=== PATIENT | female | born 1945 | race Caucasian/White ===

== ENCOUNTER 2017-07-01 12:06 | Emergency (ER) | payer MEDICARE ==
[2017-07-01 12:17] VITALS: BP 138/63
[2017-07-01] MEDS ORDERED: KETOROLAC TROMETHAMINE 60 MG/2 ML VIAL IM ONE ×2 (13:22→13:25)
--- NOTE | 2017-07-01 13:34 | ERNOTE ---
ENT HPI Date of Service: 07/01/17 Presenting Symptoms: other Time Seen by Provider: 07/01/17 13:13 Source: patient, family Exam Limitations: no limitations - Immun/Allergies/Home Medications Immunizations: IMMUNIZATION HX Immunizations Up to Date Yes History of Influenza Vaccine No Hx Pneumococcal Vaccination No Allergies/Adverse Reactions: Allergies Allergy/AdvReac Type Severity Reaction Status Date / Time Iodinated Contrast- Oral and Allergy Severe Verified 04/15/16 08:37 IV Dye [IV Dye, Iodine Containing Contrast ] sulfamethoxazole Allergy Verified 04/15/16 08:37 [From Bactrim] trimethoprim [From Bactrim] Allergy Verified 04/15/16 08:37 ceftriaxone sodium AdvReac Severe Pain Verified 04/15/16 08:37 [From Rocephin] ciprofloxacin [From Cipro] AdvReac Severe Muscle Pain Verified 04/15/16 08:37 ciprofloxacin HCl AdvReac Severe Muscle Pain Verified 04/15/16 08:37 [From Cipro] Home Medications: HOME MEDICATIONS Amox Tr/Potassium Clavulanate [Augmentin 875-125 Tablet] 875 mg PO Q12H #20 tab 07/01/17 [Last Taken Unknown] - History of Present Illness Narrative: Complains of left ear pain back through the mastoid and down into the neck. Began several days ago and has been worsening to the point she cannot sleep or touch the affected area. Denies any trauma, fever, or other symptoms. Date (Duration): 07/01/17 Severity: Present: moderate ENT Location: Present: ear (L) Prearrival Treatment: Present: no prearrival treatment Modifying Factors - Improves: Reports: rest Modifying Factors - Worsens: Reports: activity Associated Symptoms - ENT: Reports: denies symptoms Review of Systems - Narrative Narrative: See HPI. States she recently had left facial cellulitis. States she has taken pcn before with no reaction. - Review of Systems Constitutional: Present: other - Denies any fever, chills, etc. EYE: Present: no symptoms reported ENT: Present: other - Left ear pain down through mastoid into neck as described. Denies any drainage. Respiratory: Present: cough - Dry nonproductive Cardiology: Present: no symptoms reported Gastrointestinal/Abdominal: Present: no symptoms reported Musculoskeletal: Present: no symptoms reported Skin: Present: no symptoms reported Neurological: Present: no symptoms reported Hematologic/Lymphatic: Present: no symptoms reported Psych: Present: no symptoms reported - Patient's Past Medical History Patient History - Medical: Kidney stone, UTI'S Patient History - Cardiac/Respiratory: No pertinent hx Patient History - Cancer: Skin Patient History - Surgical Procedures: Other Patient History - Other: None - Family History Mother Family History - Medical: History Unknown Family History - Cardiac/Respiratory: History Unknown - Social History Living Situations: home Abuse History: No History of abuse Psych History: No pertinent hx Smoking Status: Former smoker Have you smoked in the past 12 months: No Do you dip or chew tobacco: No Alcohol Use: none Drug Use: none - Immunizations Immunizations Up to Date: Yes Hx Pneumococcal Vaccination: No History of Influenza Vaccine: No Physical Exam - Physical Exam Narrative: No signs of significant illness or stress. Have not heard patient cough while in ER. General Appearance: Present: wd/wn, alert, no apparent distress Head Exam: Present: normal inspection, no tenderness w palpation Eye Exam: Normal inspection: bilateral, PERRL: bilateral, EOMI: bilateral Ears, Nose, Throat: Present: abnormal TM (L), other - Left TM retracted with residual blood present along with erythema. No perforation. Mastoids clear bilateral. Left posterior cervical lymphadenopathy with significant tenderness. No erythema or warmth of the noted area. Neck: Present: supple, full range of motion Respiratory: Present: no respiratory distress, normal breath sounds, no accessory muscle use, lungs clear Cardiovascular/Chest: Present: regular rate, rhythm, no murmur Back Exam: Present: other - No cervical spinal tenderness. No abnormal bony structure. Neurological Exam: Present: alert, oriented, normal mood/affect, no motor/ sensory deficits Skin Exam: Present: normal color, warm/dry Lymphatic Exam: Present: other - Left posterior cervical lymphadenopathy mild. ED Progress - Vital Signs Patient's Vital Signs:: I have reviewed the patient's vital signs. Vital Signs: Vital Signs 07/01/17 12:13 Temperature 37.3 C Pulse Rate 79 Respiratory 14 Rate Blood Pressure 138/63 O2 Sat by Pulse 97 Oximetry - Progress/Reassessment Chief Complaint: Earache Progress:: Improved Progress Note-Subjective: 07/01/17 13:36 States pain is beginning to improve. Much more comfortable. - Transfer of Care Expected Disposition: Discharge Departure Clinical Impression: Lymphadenopathy Otitis media Qualifiers: Otitis media type: unspecified nonsuppurative Laterality: left Qualified Code(s ): H65.92 - Unspecified nonsuppurative otitis media, left ear - Departure Disposition: Home Follow Up Needed Condition: Good Additional Instructions: Appears you have an infection of the left ear that is draining down into a lymphnode in the neck causing the pain. If your kidney function is good continue with ibuprofen 600mg every 6 hrs with food as well as the antibiotic. Follow up with family provider in 2-3 days for recheck. If you worsen or do not improve let us know. Prescriptions: Amox Tr/Potassium Clavulanate [Augmentin 875-125 Tablet] 875 mg PO Q12H #20 tab
== END 2017-07-01 13:38 | disposition home or self-care (01) ==
LOC: ER 12:06
DX: H65.92 Unspecified nonsuppurative otitis media, left ear (principal); R59.1 Generalized enlarged lymph nodes; Z87.440 Personal history of urinary (tract) infections; Z87.442 Personal history of urinary calculi; Z85.828 Personal history of other malignant neoplasm of skin; Z87.891 Personal history of nicotine dependence

== ENCOUNTER 2020-11-15 16:05 | Inpatient (IN) ==
--- NOTE | 2020-11-15 16:25 | ERNOTE ---
Dyspnea - General Presenting Symptoms: shortness of breath Time Seen by Provider: 11/15/20 16:08 Source: patient Exam Limitations: clinical condition - Immun/Allergies/Home Medications Immunizations: IMMUNIZATION HX Immunizations Up to Date Yes History of Influenza Vaccine No Hx Pneumococcal Vaccination No Allergies/Adverse Reactions: Allergies Iodinated Contrast Media [IV Dye, Iodine Containing Contrast ] Allergy (Severe, Verified 10/30/20 18:30) muscles lock up azithromycin Allergy (Verified 10/30/20 18:30) Hives sulfamethoxazole [From Bactrim] Allergy (Verified 10/30/20 18:30) trimethoprim [From Bactrim] Allergy (Verified 10/30/20 18:30) ceftriaxone sodium [From Rocephin] Adverse Reaction (Severe, Verified 10/30/20 18:30) Pain ciprofloxacin [From Cipro] Adverse Reaction (Severe, Verified 10/30/20 18:30) Muscle Pain states muscles locked up ciprofloxacin HCl [From Cipro] Adverse Reaction (Severe, Verified 10/30/20 18:30) Muscle Pain states muscles locked up Home Medications: HOME MEDICATIONS Cyclobenzaprine HCl 10 mg PO TID PRN #21 tab 10/30/20 [Last Taken Unknown] ALPRAZolam [Xanax] 0.25 mg PO BID PRN 11/16/20 [Last Taken Unknown] Albuterol Sulfate [Albuterol Sulfate Hfa] 18 gm IH Q4H PRN 11/16/20 [Last Taken Unknown] Atorvastatin Calcium 10 mg PO DAILY 11/16/20 [Last Taken Unknown] Budesonide/Formoterol Fumarate [Symbicort 160-4.5 Mcg Inhaler] 10.2 gm IH BID 11/16/20 [Last Taken Unknown] Levothyroxine Sodium [Synthroid] 25 mcg PO QAM 11/16/20 [Last Taken Unknown] Meloxicam 7.5 mg PO DAILY 11/16/20 [Last Taken Unknown] - History of Present Illness Narrative: Patient states she was diagnosed with pneumonia 2 weeks ago and placed on antibiotics but has not gotten much better. Over the past 5 days she states she got much worse. Today she is significantly short of breath and was brought to ER by EMS Severity: moderate, severe Treatment [employer]: none Initiating event: Reports: other - Pneumonia Frequency of episodes: Reports: occassional episodes Review of Systems - Review of Systems Constitutional: Present: recent illness, chills, fatigue EYE: Absent: vision changes ENT: Absent: nose congestion, nasal drainage Respiratory: Present: See HPI Cardiology: Present: edema Gastrointestinal/Abdominal: Absent: nausea, vomiting, abdominal pain Genitourinary: Absent: dysuria Skin: Absent: rash Neurological: Present: headache Endocrine: Absent: excessive sweating Medical History (Last Reviewed 11/15/20 @ 16:23 by Regulo Martin DO) Broken ankle History of kidney stones Skin cancer (melanoma) Surgical History: Surgical History (Last Reviewed 11/15/20 @ 16:23 by Regulo Martin DO) History of lithotripsy Family History: Family History (Last Reviewed 11/15/20 @ 16:23 by Regulo Martin DO) Other Family history non-contributory Social History: (Last Reviewed 11/15/20 @ 16:23 by Regulo Martin DO) Tobacco: Smoking Status: Former smoker Alcohol: alcohol intake: never Substance Use: substance use type: does not use Physical Exam - Physical Exam General Appearance: Present: wd/wn, alert, mild distress Head Exam: Present: normal inspection, no evidence of injury Neck: Present: normal inspection, supple Respiratory: Present: respiratory distress - mild, accessory muscle use, rhonchi - left Cardiovascular/Chest: Present: no murmur, tachycardia Gastrointestinal/Abdominal: Present: nondistended, soft Extremity Exam: Present: normal inspection, no edema Neurological Exam: Present: alert, oriented, no motor/sensory deficits Skin Exam: Present: normal color, warm/dry Lymphatic Exam: Present: no adenopathy Progress - Results and Orders Patient's Lab Results:: I have reviewed the patient's lab results. - Vital Signs Patient's Vital Signs:: I have reviewed the patient's vital signs. - EKG EKG #1 EKG: NSR, nonspecific ST T wave changes EKG read: Interp. by me - X-Ray X-Ray #1 X-Ray: chest Interpretation: Reviewed by me X-ray Comments: Findings: Bilateral right worse than left multifocal airspace consolidation. Small pleural effusions suggested. No pneumothorax. Cardiac silhouette and pulmonary vasculature are normal. Aortic tortuosity. The osseous structures demonstrate decreased bony mineralization and degenerative changes of the spine and shoulders. IMPRESSION: BILATERAL MULTIFOCAL PNEUMONIA. Electronically signed by Arvind Bowles D.O.. - Progress/Reassessment Progress:: Unchanged Progress Note-Subjective: 11/15/20 19:[address] Reich, she agrees with admission and we decided on a dose of Levaquin, Lovenox to cover her for possible PE and schedule a VQ scan in the morning. 11/15/20 19:34 We will give a dose of doxycycline IV as the patient has severe allergic reaction to ciprofloxacin and also reaction to both penicillin and cephalosporins. But the patient reports she has had a rash with a penicillin which is not on her chart reaction to Rocephin is on as an allergy. Departure Clinical Impression: Hypoxia, Elevated d-dimer Pneumonia Qualifiers: Pneumonia type: due to unspecified organism Laterality: bilateral Lung location: lower lobe of lung Qualified Code(s): J18.9 - Pneumonia, unspecified organism - Departure Disposition: Still a patient Condition: Stable
[2020-11-15 16:32] LABS: Hematocrit 37.4 % (37.0-47.0); Hemoglobin 12.2 gm/dL (12.5-16.0); Mean Cell Volume 87.6 fl (78-100); Mean Corpuscular Hemoglobin 28.6 pg (27-31); Mean Corpuscular Hgb Conc 32.6 g/dl (32-36); Mean Platelet Volume 8.4 fl (8-12.5); Platelet Count 260 K/mm3 (150-450); Red Blood Count 4.27 M/mm3 (4.2-5.4); Red Cell Distribution Width 13.2 % (11.5-14.0); White Blood Count 10.2 K/mm3 (4.0-10.5)
[2020-11-15 16:42] LABS: Total Cells Counted 100
[2020-11-15 16:53] LABS: ALT 18 U/L (19-67); AST 24 U/L (0-48); Albumin * 2.5 gm/dl (3.4-5.0); Alkaline Phosphatase * 93 U/L (50-170); Anion Gap 11.3 mmol/L (6.8-13.8); BNP * 2142 pg/mL (5-550); BUN/Creatinine Ratio 22.2 (9.0-21.6); Bilirubin, Total 0.8 mg/dL (0.0-1.1); Blood Urea Nitrogen 20 mg/dL (3-23); Ca. Corrected For Albumin 9.5 mg/dL (8.4-10.2); Calcium * 8.6 mg/dL (7.9-10.9); Carbon Dioxide 26.2 mmol/L (24-32.6); Chloride 100 mmol/L (97-106); Glucose * 127 mg/dL (70-110); Potassium 3.5 mmol/L (3.4-4.6); Sodium 134 mmol/L (132-142); Troponin I Less than 0.017 ng/mL (0.00-0.10)
[2020-11-15 17:04] LABS: Band 7 % (0-2.0); Immature Granulocyte 3 (0-1); Lymphocyte 8 % (20-51); Monocyte 3 % (0-9); Neutrophil 79 % (42-75); Neutrophil # 8.1 K/mm3 (1.3-6.0)
[2020-11-15 17:05] LABS: Giant Platelets Trace; Platelet Estimate Normal (NORMAL); RBC Morphology Normal (NORMAL)
[2020-11-15] MEDS ORDERED: ENOXAPARIN SODIUM 100 MG/ML SYRG SC SCH (19:45)
[2020-11-15] MEDS ORDERED: DOXYCYCLINE HYCLATE 100 MG in DEXTROSE 5 % IN WATER 100 ML IV SCH ×2 (19:45)
[2020-11-15] MEDS ORDERED: LEVOFLOXACIN 750 MG TABLET PO SCH (21:19)
[2020-11-15] MEDS: DOXYCYCLINE HYCLATE 100 MG in DEXTROSE 5 % IN WATER 100 ML IV SCH ×2 (22:02)
[2020-11-16 06:20] LABS: Hematocrit 37.6 % (37.0-47.0); Hemoglobin 12.1 gm/dL (12.5-16.0); Mean Cell Volume 88.9 fl (78-100); Mean Corpuscular Hemoglobin 28.6 pg (27-31); Mean Corpuscular Hgb Conc 32.2 g/dl (32-36); Mean Platelet Volume 8.8 fl (8-12.5); Neutrophil # 10.6 K/mm3 (1.3-6.0); Neutrophil % 81.5 % (42-75.0); Platelet Count 273 K/mm3 (150-450); Red Blood Count 4.23 M/mm3 (4.2-5.4); Red Cell Distribution Width 13.4 % (11.5-14.0)
[2020-11-16 06:34] LABS: Albumin * 2.3 gm/dl (3.4-5.0); Anion Gap 13.6 mmol/L (6.8-13.8); BUN/Creatinine Ratio 22.4 (9.0-21.6); Bilirubin, Total 0.9 mg/dL (0.0-1.1); Carbon Dioxide 25.9 mmol/L (24-32.6); Potassium 3.5 mmol/L (3.4-4.6); Total Protein 8.8 gm/dL (6.2-8.2)
[2020-11-16] MEDS: ACETAMINOPHEN 325 MG TABLET PO PRN ×3 (06:56→16:59)
[2020-11-16] MEDS ORDERED: ENOXAPARIN SODIUM 60 MG/0.6 ML SYRG SC SCH (08:00)
[2020-11-16] MEDS ORDERED: ENOXAPARIN SODIUM SC SCH ×2 (08:00)
[2020-11-16] MEDS ORDERED: diphenhydrAMINE HCL 50 MG/ML VIAL IV ONE (08:51)
[2020-11-16] MEDS: DOXYCYCLINE HYCLATE 100 MG in DEXTROSE 5 % IN WATER 100 ML IV SCH ×4 (09:12→22:16)
[2020-11-16] MEDS: METHYLPREDNISOLONE SOD SUCC/PF 40 MG/ML VIAL IV SCH ×2 (09:12→13:38)
--- NOTE | 2020-11-16 09:18 | HP ---
Chief Complaint - Chief Complaint Date of Service: 11/16/20 Time of Service: 08:13 Chief Complaint: Shortness of breath History of Present Illness: 75-year-old female with a past medical history of melanoma and kidney stones presents with complaints of shortness of breath. She states her symptoms began 2 weeks ago. She was seen by a physician and diagnosed with pneumonia. She was sent home with a prescription for cefuroxime. Her symptoms progressively worsened. She noted a fever 102 at home. She denies cough. Symptoms are associated with chest pain and abdominal pain and back pain. In the ER she was found to be hypoxic with O2 sat of 88%, she required oxygen via nasal cannula. Labs showed a normal white blood cell count, mild anemia with hemoglobin of 12.2, elevated D-dimer of 4.18, troponin less than 0.017, BNP of 2142. Chest x- ray was positive for bilateral multifocal pneumonia. Due to her many allergies including ciprofloxacin and ceftriaxone and azithromycin, she was started on doxycycline. CTA was not performed in the ER because she has a history of allergies to IV contrast. She received a dose of Lovenox for presumed PE in the ER. Medical History (Last Reviewed 11/15/20 @ 20:46 by Shital Dean RN) Broken ankle History of kidney stones Skin cancer (melanoma) Surgical History: Surgical History (Last Reviewed 11/15/20 @ 20:47 by Shital Dean RN) History of lithotripsy Family History: Family History (Last Reviewed 11/15/20 @ 20:47 by Shital Dean RN) Other Family history non-contributory Social History: (Last Reviewed 11/15/20 @ 20:47 by Shital Dean RN) Tobacco: Smoking Status: Former smoker Alcohol: alcohol intake: never Substance Use: substance use type: does not use Review Of Systems (GEN) - Review of Systems Generalized/Overall Review: Present: Fever Respiratory: Present: Shortness of Breath. Absent: Cough Cardiac: Present: Chest Pain Abdominal: Present: Abdominal Pain Misc: All systems neg except as marked Immunizations: IMMUNIZATION HX Immunizations Up to Date Yes History of Influenza Vaccine No Hx Pneumococcal Vaccination No Allergies/Adverse Reactions: Allergies Allergy/AdvReac Type Severity Reaction Status Date / Time Iodinated Contrast Media Allergy Severe Verified 10/30/20 18:30 [IV Dye, Iodine Containing Contrast ] azithromycin Allergy Hives Verified 10/30/20 18:30 sulfamethoxazole Allergy Verified 10/30/20 18:30 [From Bactrim] trimethoprim [From Bactrim] Allergy Verified 10/30/20 18:30 ceftriaxone sodium AdvReac Severe Pain Verified 10/30/20 18:30 [From Rocephin] ciprofloxacin [From Cipro] AdvReac Severe Muscle Pain Verified 10/30/20 18:30 ciprofloxacin HCl AdvReac Severe Muscle Pain Verified 10/30/20 18:30 [From Cipro] Home Medications: HOME MEDICATIONS Cyclobenzaprine HCl 10 mg PO TID PRN #21 tab 10/30/20 [Last Taken Unknown] ALPRAZolam [Xanax] 0.25 mg PO BID PRN 11/16/20 [Last Taken Unknown] Albuterol Sulfate [Albuterol Sulfate Hfa] 18 gm IH Q4H PRN 11/16/20 [Last Taken Unknown] Atorvastatin Calcium 10 mg PO DAILY 11/16/20 [Last Taken Unknown] Budesonide/Formoterol Fumarate [Symbicort 160-4.5 Mcg Inhaler] 10.2 gm IH BID 11/16/20 [Last Taken Unknown] Levothyroxine Sodium [Synthroid] 25 mcg PO QAM 11/16/20 [Last Taken Unknown] Meloxicam 7.5 mg PO DAILY 11/16/20 [Last Taken Unknown] Exam - Exam Vital Signs: Vital Signs - Last Taken Temp 36.7 C 11/16/20 06:54 Pulse 86 11/16/20 06:54 Resp 18 11/16/20 06:54 BP 139/68 11/16/20 06:54 Pulse Ox 93 11/16/20 06:54 Constitutional: Present: Alert, Cooperative, Well developed, Well nourished, No distress, Elderly ENT Exam: Present: hearing grossly normal, dry mucous membranes Eye Exam: bilateral eye: normal inspection, EOMI Neck: Present: non-tender, supple. Absent: lymphadenopathy (R), lymphadenopathy (L) Back Exam: Present: no CVA tenderness, no vertebral tenderness Respiratory: Present: no respiratory distress, no accessory muscle use, crackles - Bilateral lung bases, No wheezing. Absent: rhonchi Cardiovascular/Chest: Present: normal peripheral pulses, regular rate, rhythm, no murmur Peripheral Pulses: dorsalis-pedis (R): 1+, dorsalis-pedis (L): 1+ Abdomen: Present: Normal bowel sounds, soft, nontender Extremity: Present: no pedal edema Skin Exam: Present: normal color, warm/dry Neurologic: Present: alert, normal mood/affect Appearance: Present: appropriate appearance, appropriate insight Eye contact: Present: cooperative Thoughts: Present: normal mood /affect Diagnostic Studies: Abnormal Lab Results 11/15/20 11/15/20 11/15/20 Range/Units 16:20 16:20 16:20 WBC (4.0-10.5) K/mm3 Hgb 12.2 L (12.5-16.0) gm/dL Immature Gran % (Auto) (0.001-0.429) % Immature Gran # (Auto) (0.000-0.0310) K/mm3 Neutrophils % (42-75.0) % Neutrophils % (Manual) 79 H (42-75) % Band Neuts % (Manual) 7 H (0-2.0) % Lymphocytes % (20-51) % Lymphocytes % (Manual) 8 L (20-51) % Immature Granulocytes 3 H (0-1) Neutrophils # (1.3-6.0) K/mm3 Neutrophils # (Manual) 8.1 H (1.3-6.0) K/mm3 Lymphocytes # (1.5-3.5) k/mm3 Lymphocytes # (Manual) 0.8 L (1.5-3.5) k/mm3 D-Dimer 4.18 H (0.19-0.49) ug/mL Est GFR (Non-Af Amer) (60-130) mL/min BUN/Creatinine Ratio 22.2 H (9.0-21.6) Random Glucose 127 H (70-110) mg/dL ALT 18 L (19-67) U/L B-Natriuretic Peptide 2142 H (5-550) pg/mL Total Protein 9.0 H (6.2-8.2) gm/dL Albumin 2.5 L (3.4-5.0) gm/dl 11/16/20 11/16/20 Range/Units 06:15 06:15 WBC 13.0 H D (4.0-10.5) K/mm3 Hgb 12.1 L (12.5-16.0) gm/dL Immature Gran % (Auto) 1.90 H (0.001-0.429) % Immature Gran # (Auto) 0.25 H (0.000-0.0310) K/mm3 Neutrophils % 81.5 H (42-75.0) % Neutrophils % (Manual) (42-75) % Band Neuts % (Manual) (0-2.0) % Lymphocytes % 10.6 L (20-51) % Lymphocytes % (Manual) (20-51) % Immature Granulocytes (0-1) Neutrophils # 10.6 H (1.3-6.0) K/mm3 Neutrophils # (Manual) (1.3-6.0) K/mm3 Lymphocytes # 1.37 L (1.5-3.5) k/mm3 Lymphocytes # (Manual) (1.5-3.5) k/mm3 D-Dimer (0.19-0.49) ug/mL Est GFR (Non-Af Amer) 59 L (60-130) mL/min BUN/Creatinine Ratio 22.4 H (9.0-21.6) Random Glucose 134 H (70-110) mg/dL ALT 15 L (19-67) U/L B-Natriuretic Peptide (5-550) pg/mL Total Protein 8.8 H (6.2-8.2) gm/dL Albumin 2.3 L (3.4-5.0) gm/dl Laboratory Results WBC 13.0 K/mm3 (4.0-10.5) H D 11/16/20 06:15 RBC 4.23 M/mm3 (4.2-5.4) 11/16/20 06:15 Hgb 12.1 gm/dL (12.5-16.0) L 11/16/20 06:15 Hct 37.6 % (37.0-47.0) 11/16/20 06:15 MCV 88.9 fl (78-100) 11/16/20 06:15 MCH 28.6 pg (27-31) 11/16/20 06:15 MCHC 32.2 g/dl (32-36) 11/16/20 06:15 RDW 13.4 % (11.5-14.0) 11/16/20 06:15 Plt Count 273 K/mm3 (150-450) 11/16/20 06:15 MPV 8.8 fl (8-12.5) 11/16/20 06:15 Immature Gran % (Auto) 1.90 % (0.001-0.429) H 11/16/20 06:15 Immature Gran # (Auto) 0.25 K/mm3 (0.000-0.0310) H 11/16/20 06:15 Neutrophils % 81.5 % (42-75.0) H 11/16/20 06:15 Neutrophils % (Manual) 79 % (42-75) H 11/15/20 16:20 Band Neuts % (Manual) 7 % (0-2.0) H 11/15/20 16:20 Lymphocytes % 10.6 % (20-51) L 11/16/20 06:15 Lymphocytes % (Manual) 8 % (20-51) L 11/15/20 16:20 Monocytes % 5.1 % (0.0-9) 11/16/20 06:15 Monocytes % (Manual) 3 % (0-9) 11/15/20 16:20 Eosinophils % 0.5 % (0.0-3.0) 11/16/20 06:15 Basophils % 0.4 % (0.0-1.0) 11/16/20 06:15 Nucleated RBC % 0.0 k/mm3 (0-1) 11/16/20 06:15 Immature Granulocytes 3 (0-1) H 11/15/20 16:20 Neutrophils # 10.6 K/mm3 (1.3-6.0) H 11/16/20 06:15 Neutrophils # (Manual) 8.1 K/mm3 (1.3-6.0) H 11/15/20 16:20 Lymphocytes # 1.37 k/mm3 (1.5-3.5) L 11/16/20 06:15 Lymphocytes # (Manual) 0.8 k/mm3 (1.5-3.5) L 11/15/20 16:20 Monocytes # 0.7 k/mm3 (0.0-1.0) 11/16/20 06:15 Monocytes # (Manual) 0.3 k/mm3 (0.0-1.0) 11/15/20 16:20 Eosinophils # 0.1 k/mm3 (0.0-0.7) 11/16/20 06:15 Absolute Basophils 0.1 k/mm3 (0.0-0.1) 11/16/20 06:15 Platelet Estimate Normal (NORMAL) 11/15/20 16:20 Giant Platelets Trace 11/15/20 16:20 RBC Morphology Normal (NORMAL) 11/15/20 16:20 D-Dimer 4.18 ug/mL (0.19-0.49) H 11/15/20 16:20 Sodium 136 mmol/L (132-142) 11/16/20 06:15 Plasma Sodium 137 mmol/L (130-142) 11/16/20 06:15 Potassium 3.5 mmol/L (3.4-4.6) 11/16/20 06:15 Chloride 100 mmol/L (97-106) 11/16/20 06:15 Carbon Dioxide 25.9 mmol/L (24-32.6) 11/16/20 06:15 Anion Gap 13.6 mmol/L (6.8-13.8) 11/16/20 06:15 BUN 22 mg/dL (3-23) 11/16/20 06:15 Creatinine 0.98 mg/dL (0.4-1.4) 11/16/20 06:15 Est GFR (Non-Af Amer) 59 mL/min (60-130) L 11/16/20 06:15 BUN/Creatinine Ratio 22.4 (9.0-21.6) H 11/16/20 06:15 Random Glucose 134 mg/dL (70-110) H 11/16/20 06:15 Lactic Acid, Venous 0.9 mmol/L (0.4-2.0) 11/15/20 16:20 Calcium 9.0 mg/dL (7.9-10.9) 11/16/20 06:15 Calcium Adj for Albumin 10.0 mg/dL (8.4-10.2) 11/16/20 06:15 Total Bilirubin 0.9 mg/dL (0.0-1.1) 11/16/20 06:15 AST 19 U/L (0-48) 11/16/20 06:15 ALT 15 U/L (19-67) L 11/16/20 06:15 Alkaline Phosphatase 83 U/L (50-170) 11/16/20 06:15 Troponin I Less than 0.017 ng/mL (0.00-0.10) 11/15/20 16:20 B-Natriuretic Peptide 2142 pg/mL (5-550) H 11/15/20 16:20 Total Protein 8.8 gm/dL (6.2-8.2) H 11/16/20 06:15 Albumin 2.3 gm/dl (3.4-5.0) L 11/16/20 06:15 SARS-CoV-2 (PCR) Not detected (NotDetected) 11/15/20 17:36 Assessment/Plan - Narrative Narrative: 75-year-old female with a past medical history of melanoma and kidney stones presents with complaints of shortness of breath. She states her symptoms began 2 weeks ago. She was seen by a physician and diagnosed with pneumonia. She was sent home with a prescription for cefuroxime. Her symptoms progressively worsened. She noted a fever 102 at home. She denies cough. Symptoms are associated with chest pain and abdominal pain and back pain. In the ER she was found to be hypoxic with O2 sat of 88%, she required oxygen via nasal cannula. Labs showed a normal white blood cell count, mild anemia with hemoglobin of 12.2, elevated D-dimer of 4.18, troponin less than 0.017, BNP of 2142. Chest x- ray was positive for bilateral multifocal pneumonia. Due to her many allergies including ciprofloxacin and ceftriaxone and azithromycin, she was started on doxycycline. CTA was not performed in the ER because she has a history of allergies to IV contrast. She received a dose of Lovenox for presumed PE in the ER. I spoke with her regarding her allergy and she states it causes muscle pain. She is agreeable to premedication with steroids and Benadryl to prevent this reaction. I would prefer to perform a CTA rather than a VQ scan because it is a more definitive study. Plan #1 continue with doxycycline #2 plan for CTA with premedication with methylprednisolone 40 mg IV every 4 hours until the CTA and diphenhydramine 50 mg IV 1 hour prior to contrast #3 wean to baseline oxygen, goal O2 sat is greater than 90% - Assessment/Plan (1) Multifocal pneumonia Problem: Acute (2) Back pain Problem: Acute (3) Hypoxia Problem: Acute (4) Elevated d-dimer Problem: Acute
[2020-11-16] MEDS ORDERED: ENOXAPARIN SODIUM 40 MG/0.4 ML SYRG SC SCH (14:30)
[2020-11-17 06:49] LABS: Hemoglobin 12.5 gm/dL (12.5-16.0); Mean Cell Volume 87.8 fl (78-100); Mean Corpuscular Hemoglobin 28.2 pg (27-31); Mean Corpuscular Hgb Conc 32.1 g/dl (32-36); Mean Platelet Volume 8.9 fl (8-12.5); Neutrophil # 11.5 K/mm3 (1.3-6.0); Neutrophil % 87.6 % (42-75.0); Platelet Count 355 K/mm3 (150-450); Red Blood Count 4.44 M/mm3 (4.2-5.4); Red Cell Distribution Width 13.1 % (11.5-14.0); White Blood Count 13.1 K/mm3 (4.0-10.5)
[2020-11-17 07:05] LABS: Albumin * 2.3 gm/dl (3.4-5.0); Anion Gap 12.3 mmol/L (6.8-13.8); BUN/Creatinine Ratio 28.6 (9.0-21.6); Bilirubin, Total 0.5 mg/dL (0.0-1.1); Ca. Corrected For Albumin 10.3 mg/dL (8.4-10.2); Calcium * 9.3 mg/dL (7.9-10.9); Carbon Dioxide 26.1 mmol/L (24-32.6); Potassium 3.4 mmol/L (3.4-4.6)
[2020-11-17] MEDS: ENOXAPARIN SODIUM 40 MG/0.4 ML SYRG SC SCH (07:38)
[2020-11-17] MEDS: DOXYCYCLINE HYCLATE 100 MG in DEXTROSE 5 % IN WATER 100 ML IV SCH ×4 (10:13→21:14)
--- NOTE | 2020-11-17 10:24 | PN ---
Subjective - Date and Time Seen Date: 11/17/20 Time: 08:57 Subjective Narrative: She states she feels better today. She has some weakness. She ambulated in the hallway and did not require oxygen. She is tolerating her diet. Objective - Review of Systems Generalized/Overall Review: Reports: Weakness. Denies: Fever Respiratory: Reports: Cough - Nonproductive. Denies: Shortness of Breath Cardiac: Denies: Chest Pain - With inspiration Abdominal: Denies: Abdominal Pain Misc: All systems neg except as marked - Vitals Vitals: Last Vital Signs Temp 36.7 C 11/17/20 06:42 Pulse 78 11/17/20 06:42 Resp 16 11/17/20 06:42 BP 149/63 11/17/20 06:42 Pulse Ox 91 L 11/17/20 06:42 - Abnormal Lab Findings Abnormal Lab Findings: Abnormal Lab Results 11/17/20 11/17/20 Range/Units 06:20 06:20 WBC 13.1 H (4.0-10.5) K/mm3 Immature Gran % (Auto) 2.60 H (0.001-0.429) % Immature Gran # (Auto) 0.34 H (0.000-0.0310) K/mm3 Neutrophils % 87.6 H (42-75.0) % Lymphocytes % 6.8 L (20-51) % Neutrophils # 11.5 H (1.3-6.0) K/mm3 Lymphocytes # 0.89 L (1.5-3.5) k/mm3 BUN 28 H (3-23) mg/dL Est GFR (Non-Af Amer) 59 L (60-130) mL/min BUN/Creatinine Ratio 28.6 H (9.0-21.6) Random Glucose 246 H D (70-110) mg/dL Calcium Adj for Albumin 10.3 H (8.4-10.2) mg/dL ALT 17 L (19-67) U/L Total Protein 9.0 H (6.2-8.2) gm/dL Albumin 2.3 L (3.4-5.0) gm/dl - Exam Constitutional: Present: Alert, Cooperative, Well developed, Well nourished, No distress, Elderly ENT Exam: Present: hearing grossly normal Neck: Present: non-tender, supple. Absent: lymphadenopathy (R), lymphadenopathy (L) Respiratory: Present: no respiratory distress, no accessory muscle use, crackles - Mild in bilateral bases, otherwise lungs are clear to auscultation. Absent: rhonchi Cardiovascular/Chest: Present: normal peripheral pulses, regular rate, rhythm, no edema, no murmur Abdomen: Present: Normal bowel sounds, soft, nontender Extremity: Present: no pedal edema Skin Exam: Present: normal color, warm/dry Neurologic: Present: alert, normal mood/affect Appearance: Present: appropriate appearance, appropriate insight Eye contact: Present: cooperative Thoughts: Present: normal thought pattern, normal mood /affect Assessment/Plan Plan Narrative: 75-year-old female with a past medical history of melanoma and kidney stones presents with complaints of shortness of breath. She states her symptoms began 2 weeks ago. She was seen by a physician and diagnosed with pneumonia. She was sent home with a prescription for cefuroxime. Her symptoms progressively worsened. She noted a fever 102 at home. She denies cough. Symptoms are associated with chest pain and abdominal pain and back pain. In the ER she was found to be hypoxic with O2 sat of 88%, she required oxygen via nasal cannula. Labs showed a normal white blood cell count, mild anemia with hemoglobin of 12.2, elevated D-dimer of 4.18, troponin less than 0.017, BNP of 2142. Chest x- ray was positive for bilateral multifocal pneumonia. Due to her many allergies including ciprofloxacin and ceftriaxone and azithromycin, she was started on doxycycline. CTA was not performed in the ER because she has a history of allergies to IV contrast. She received a dose of Lovenox for presumed PE in the ER. I spoke with her regarding her allergy and she states it causes muscle pain. She is agreeable to premedication with steroids and Benadryl to prevent this reaction. I would prefer to perform a CTA rather than a VQ scan because it is a more definitive study. She ambulated in the hallway today and did not require oxygen. She is on room air and keeping her O2 saturation greater than 90%. She is tolerating her diet. Overall she feels better. She does feel little bit weak and therefore does not feel ready to go home today. I will keep her in the hospital for 1 more night and plan for discharge tomorrow. Plan #1 continue with doxycycline day 2 #2 CTA was negative for pulmonary embolism #3 she is on room air now and keeping her O2 saturation greater than 90%. #4 VTE prophylaxis with Lovenox #5 resume home medications for comorbidities - Problems/Diagnosis (1) Multifocal pneumonia Problem: Acute (2) Back pain Problem: Acute (3) Hypoxia Problem: Acute (4) Elevated d-dimer Problem: Acute (5) SIRS (systemic inflammatory response syndrome) Problem: Acute
[2020-11-17] MEDS ORDERED: ALPRAZolam 0.25 MG TABLET PO PRN (10:43)
[2020-11-17] MEDS ORDERED: ALBUTEROL SULFATE 2.5 MG/0.5 ML VIAL.NEB IH PRN (10:43)
[2020-11-17] MEDS ORDERED: CYCLOBENZAPRINE HCL 10 MG TABLET PO PRN (10:43)
[2020-11-17] MEDS: MELOXICAM 7.5 MG TABLET PO SCH (11:35)
[2020-11-17] MEDS: LEVOTHYROXINE SODIUM 25 MCG TABLET PO SCH (11:35)
[2020-11-17] MEDS ORDERED: ROSUVASTATIN CALCIUM 5 MG TABLET PO SCH (21:00)
[2020-11-17] MEDS: FLUTICASONE PROPION/SALMETEROL 14 PUFF DISK.W.DEV IH SCH (21:11)
[2020-11-17] MEDS: ACETAMINOPHEN 325 MG TABLET PO PRN (21:21)
[2020-11-18] MEDS: LEVOTHYROXINE SODIUM 25 MCG TABLET PO SCH (07:16)
[2020-11-18] MEDS: ENOXAPARIN SODIUM 40 MG/0.4 ML SYRG SC SCH (07:16)
[2020-11-18] MEDS: ACETAMINOPHEN 325 MG TABLET PO PRN (07:16)
[2020-11-18] MEDS ORDERED: SENNOSIDES/DOCUSATE SODIUM 1 TAB TABLET PO SCH (08:36)
--- NOTE | 2020-11-18 08:55 | DS ---
(1) Multifocal pneumonia Problem: Acute (2) Hypoxia Problem: Acute (3) Sepsis Problem: Acute Qualifiers: Severe sepsis acute organ dysfunction type: acute respiratory failure Acute respiratory failure type: with hypoxia (4) Back pain Problem: Acute (5) Elevated d-dimer Problem: Acute Hospital Course: 75-year-old female with a past medical history of melanoma and kidney stones presents with complaints of shortness of breath. She states her symptoms began 2 weeks ago. She was seen by a physician and diagnosed with pneumonia. She was sent home with a prescription for cefuroxime. Her symptoms progressively worsened. She noted a fever 102 at home. She denies cough. Symptoms are associated with chest pain and abdominal pain and back pain. In the ER she was found to be hypoxic with O2 sat of 88%, she required oxygen via nasal cannula. Labs showed a normal white blood cell count, mild anemia with hemoglobin of 12.2, elevated D-dimer of 4.18, troponin less than 0.017, BNP of 2142. Chest x- ray was positive for bilateral multifocal pneumonia. Due to her many allergies including ciprofloxacin and ceftriaxone and azithromycin, she was started on doxycycline. CTA was not performed in the ER because she has a history of allergies to IV contrast. She received a dose of Lovenox for presumed PE in the ER. I spoke with her regarding her allergy and she states it causes muscle pain. She is agreeable to premedication with steroids and Benadryl to prevent this reaction. I would prefer to perform a CTA rather than a VQ scan because it is a more definitive study. Sepsis was present on admission with SIRS criteria for tachycardia, tachypnea, fever and several criteria [id number] ratio 206 (score 3). She continues to be independent and not require oxygen with ambulation or at rest. She is stable to be discharged home today on oral doxycycline. She will follow-up with her PCP in 1 week. Procedures Performed: none Results and Findings: Pending Mircobiology Results 11/15/20 16:38 Blood Blood Culture - Preliminary NO GROWTH AFTER 48 HOURS 11/15/20 16:20 Blood Blood Culture - Preliminary NO GROWTH AFTER 48 HOURS Lab Pending Results 11/15/20 16:20: WBC 10.2, RBC 4.27, Hgb 12.2 L, Hct 37.4, MCV 87.6, MCH 28.6, MCHC 32.6, RDW 13.2, Plt Count 260, MPV 8.4, Neutrophils % (Manual) 79 H, Band Neuts % (Manual) 7 H, Lymphocytes % (Manual) 8 L, Monocytes % (Manual) 3, Immature Granulocytes 3 H, Neutrophils # (Manual) 8.1 H, Lymphocytes # (Manual) 0.8 L, Monocytes # (Manual) 0.3, Platelet Estimate Normal, Giant Platelets Trace, RBC Morphology Normal 11/15/20 16:20: Sodium 134, Plasma Sodium 134, Potassium 3.5, Chloride 100, Carbon Dioxide 26.2, Anion Gap 11.3, BUN 20, Creatinine 0.90, Est GFR (Non-Af Amer) 65, BUN/Creatinine Ratio 22.2 H, Random Glucose 127 H, Calcium 8.6, Calcium Adj for Albumin 9.5, Total Bilirubin 0.8, AST 24, ALT 18 L, Alkaline Phosphatase 93, Troponin I Less than 0.017, B-Natriuretic Peptide 2142 H, Total Protein 9.0 H, Albumin 2.5 L 11/15/20 16:20: Lactic Acid, Venous 0.9 11/15/20 16:20: D-Dimer 4.18 H 11/15/20 17:36: SARS-CoV-2 (PCR) Not detected 11/16/20 06:15: Sodium 136, Plasma Sodium 137, Potassium 3.5, Chloride 100, Carbon Dioxide 25.9, Anion Gap 13.6, BUN 22, Creatinine 0.98, Est GFR (Non-Af Amer) 59 L, BUN/Creatinine Ratio 22.4 H, Random Glucose 134 H, Calcium 9.0, Calcium Adj for Albumin 10.0, Total Bilirubin 0.9, AST 19, ALT 15 L, Alkaline Phosphatase 83, Total Protein 8.8 H, Albumin 2.3 L 11/16/20 06:15: WBC 13.0 H D, RBC 4.23, Hgb 12.1 L, Hct 37.6, MCV 88.9, MCH 28.6, MCHC 32.2, RDW 13.4, Plt Count 273, MPV 8.8, Immature Gran % (Auto) 1.90 H, Immature Gran # (Auto) 0.25 H, Neutrophils % 81.5 H, Lymphocytes % 10.6 L, Monocytes % 5.1, Eosinophils % 0.5, Basophils % 0.4, Nucleated RBC % 0.0, Neut rophils # 10.6 H, Lymphocytes # 1.37 L, Monocytes # 0.7, Eosinophils # 0.1, Absolute Basophils 0.1 11/17/20 06:20: WBC 13.1 H, RBC 4.44, Hgb 12.5, Hct 39.0, MCV 87.8, MCH 28.2, MCHC 32.1, RDW 13.1, Plt Count 355, MPV 8.9, Immature Gran % (Auto) 2.60 H, Immature Gran # (Auto) 0.34 H, Neutrophils % 87.6 H, Lymphocytes % 6.8 L, Monocytes % 2.8, Eosinophils % 0.0, Basophils % 0.2, Nucleated RBC % 0.0, Neutrophils # 11.5 H, Lymphocytes # 0.89 L, Monocytes # 0.4, Eosinophils # 0.0, Absolute Basophils 0.0 11/17/20 06:20: Sodium 134, Plasma Sodium 136, Potassium 3.4, Chloride 99, Carbon Dioxide 26.1, Anion Gap 12.3, BUN 28 H, Creatinine 0.98, Est GFR (Non-Af Amer) 59 L, BUN/Creatinine Ratio 28.6 H, Random Glucose 246 H D, Calcium 9.3, Calcium Adj for Albumin 10.3 H, Total Bilirubin 0.5, AST 22, ALT 17 L, Alkaline Phosphatase 84, Total Protein 9.0 H, Albumin 2.3 L Discharge Location: Home Disposition: Home self-care Condition: Stable Discharge Activity: Activity as tolerated Discharge Diet: General/regular food Additional Patient Instructions (free text): Follow up with in [place], [place] in 1 week. and fax records to [phone]. Prescriptions (Any new or edited meds): Doxycycline Hyclate 100 mg PO BID #9 tablet. Transmission Status: Pending to [id number] guaiFENesin [Mucinex] 1,200 mg PO BID PRN #10 tab.er.12h PRN Reason: Cough Transmission Status: Pending to [id number] Complete Home Medications List: Complete Home Medication List: Cyclobenzaprine HCl 10 mg PO TID PRN #21 tab 10/30/20 ALPRAZolam [Xanax] 0.25 mg PO BID PRN 11/16/20 Albuterol Sulfate [Albuterol Sulfate Hfa] 18 gm IH Q4H PRN 11/16/20 Atorvastatin Calcium 10 mg PO DAILY 11/16/20 Budesonide/Formoterol Fumarate [Symbicort 160-4.5 Mcg Inhaler] 10.2 gm IH BID 11/16/20 Levothyroxine Sodium [Synthroid] 25 mcg PO QAM 11/16/20 Meloxicam 7.5 mg PO DAILY 11/16/20 Doxycycline Hyclate 100 mg PO BID #9 tablet. 11/18/20 guaiFENesin [Mucinex] 1,200 mg PO BID PRN #10 tab.er.12h 11/18/20 Forms: Patient Portal Registration
[2020-11-18] MEDS: MELOXICAM 7.5 MG TABLET PO SCH (09:06)
[2020-11-18] MEDS: FLUTICASONE PROPION/SALMETEROL 14 PUFF DISK.W.DEV IH SCH (09:06)
[2020-11-18 10:47] VITALS: BP 157/71
== END 2020-11-18 10:50 | disposition home or self-care (01) | DRG 871 ==
LOC: ER 16:05 → MS 19:18
PROVIDERS: ADMIT Internal Medicine; ATTEND Internal Medicine